=== PATIENT | female | born 1975 | race Caucasian/White ===

== ENCOUNTER 2017-11-13 08:50 | Outpatient (RCR) | payer OTHER, MEDICAID, SELFPAY ==
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
--- NOTE | 2017-11-13 14:48 | BH.MTP ---
Master Treatment Plan - Patient Information Program Physician:: Kat Colunga Primary Therapist:: Isi Black - Psychiatric Diagnoses Psychiatric Diagnoses:: Bipolar disorder F 31.9. PTSD. Anxiety unspecified. Borderline personality disorder. Excessive caffeine use. Nicotine use disorder. Remote history of alcohol use disorder. Remote history cocaine use Diagnosis Code(s):: F31.9 - Estimated LOS Estimated LOS (in weeks):: 6 Problem/Goal #1 - Problem/Goal #1 Stated Goal:: Client will increase mood stability and decrease depressive symptoms, anger/irritability, and suicidal ideation due to Bipolar I through Intensive Outpatient Program. Description of Barriers: Client has significant trauma history, limited support network, limited insight or ability to effectively regulate emotions, hx drug abuse, distorted thought patterns, and suicidal and self-harming thoughts are barriers to treatment. Functional Impact: Client?s emotion deregulation, impulsivity, and anxiety have contributed to increased difficulty at work as client reports frequent panic attacks, crying spells, and angry outbursts while on the job. Client reports her relationships with others is being impacted by symptoms as she is increasingly isolated, often verbally aggressive, and struggles to communicate needs with supports. Pt uses self-harming behaviors as a way to cope with her depression and anxiety, which led to increased problems. Client currently reports few supports and little control over dx panic attacks which has increased feelings of hopelessness and worthlessness. Client indicates intrusive trauma memories which have increased sx of depression. Goal Relevant Strengths/Supports: Client is resilient, outgoing, and motivated to improve mental health symptoms. She is currently receiving outpatient services and reports a strong desire to continue to increase her ability to recognize warning signs and triggers and manage mental health symptoms in healthy ways. Client's significant other is supportive to client getting help. - Objectives Objective #1 Stated Objective: Work with client to develop a ?crisis plan? which includes emergency telephone numbers, 3-4 coping strategies for SI, lists of supports, positive aspects of life, and motivations. Work with client to identify 3-4 sources or triggers to suicidal ideations and self-harming urges to increase insight. Identify 3 effective thought-stopping skills and healthy alternatives to self-harming to utilize. Interventions: Therapist will provide list of crisis phone numbers. Therapist will work with client to identify effective coping strategies, alternative behaviors, thought challenging strategies, and steps to take in time of mental health crisis. Discharge Criteria: Client will have achieved this goal once he completes his safety plan and is able to utilize coping and thought replacement strategies. Target Date: 12/25/17 Review Date: 12/04/17 Objective #2 Stated Objective: Client will reduce depression, angry outbursts, and impulsivity by identifying 2-3 triggers for mood changes and at least 3 ways to cope with these. Interventions: Therapist will help client develop insight into mental health triggers, provide psychoeducation regarding effective ways to communicate those triggers with support system, and aide client in identifying healthy coping strategies when identifying warning signs in order to prevent escalation of mood. Discharge Criteria: Client will have achieved this objective when able to verbalize at least 2 triggers that result in an elevated or depressed mood, indicates consistent application of healthy coping strategies, and is able to maintain mood stabalization for at least 2 weeks. Target Date: 12/25/17 Review Date: 11/06/17 Problem/Goal #2 - Problem/Goal #2 Description of Barriers: Client has significant trauma history, limited support network, limited insight or ability to effectively regulate emotions, hx drug abuse, distorted thought patterns, and suicidal and self-harming thoughts are barriers to treatment. Functional Impact: Client?s emotion deregulation, impulsivity, and anxiety have contributed to increased difficulty at work as client reports frequent panic attacks, crying spells, and angry outbursts while on the job. Client reports her relationships with others is being impacted by symptoms as she is increasingly isolated, often verbally aggressive, and struggles to communicate needs with supports. Pt uses self-harming behaviors as a way to cope with her depression and anxiety, which led to increased problems. Client currently reports few supports and little control over dx panic attacks which has increased feelings of hopelessness and worthlessness. Client indicates intrusive trauma memories which have increased sx of depression. Goal Relevant Strengths/Supports: Client is resilient, outgoing, and motivated to improve mental health symptoms. She is currently receiving outpatient services and reports a strong desire to continue to increase her ability to recognize warning signs and triggers and manage mental health symptoms in healthy ways. Client's significant other is supportive to client getting help. - Objectives Objective #1 Stated Objective: Client will identify 2-3 anxiety producing thoughts that tends to ruminate on, and reduce this by increasing self-awareness, use of calming strategies, and problem solving. Interventions: Therapist will help client identify internal struggles client faces, including anxiety around occupational pressure, use of anger as a means of coping, trauma triggers, and other identified stressors. Therapist will provide psychoeducation and work with client to identify healthy calming techniques and problem solving skills she may use in times of increased anxiety and stress. Discharge Criteria: Client will have achieved this objective when able to verbalize anxiety-producing thoughts and identify and implement 2-3 ways to cope with them. Target Date: 12/25/17 Review Date: 12/04/17
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
== END 2017-11-13 23:59 ==
LOC: BHIOP 08:50
PROVIDERS: Family Provider Nurse Practitioner; PCP Nurse Practitioner; Visit Provider Psychiatry & Neurology Psychiatry
DX: F31.9 Bipolar disorder, unspecified (principal); F43.10 Post-traumatic stress disorder, unspecified; F41.9 Anxiety disorder, unspecified; F60.3 Borderline personality disorder; F17.210 Nicotine dependence, cigarettes, uncomplicated; F10.20 Alcohol dependence, uncomplicated
CPT/HCPCS: H0035; 90853

== ENCOUNTER 2017-11-14 09:00 | Outpatient (RCR) | payer OTHER, MEDICAID, SELFPAY ==
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
--- NOTE | 2017-11-14 16:34 | BH.SGPN ---
Service Group Progress Note - Session Psychotherapy Session #2 Date Open:: 11/14/17 Time Started:: 10:21 Time Stopped:: 11:13 Targeted Problem #:: 1 Psychotherapy Session #3 Date Open:: 11/14/17 Time Started:: 11:24 Time Stopped:: 12:16
--- NOTE | 2017-11-15 10:59 | BH.COMM ---
Communication Note - Communication with Client Communication Note: Client contacted this therapist to inform that she would not be attending group on this date as she had been unable to get any sleep last night and needed to rest before work this evening. Client disclosed struggling with thoughts of hopelessness and worthlessness which lead to increased urges of self-harming this morning but denies current ideation or a plan or intent to act on these thoughts. She denies any suicidal ideation, plan, or intent and indicates feeling able to maintain safety at this time. Client denies access to lethal means and reports her boyfriend is supportive and currently in the residence. Client was willing create a safety plan for the remainder of the day as well as this weekend with this therapist. She was future oriented and discussed plans to take a hot shower and catch up on sleep before work in order to calm herself down, as well as plans to work all weekend. Client willing to call and follow-up with this therapist prior to going into work this afternoon.
--- NOTE | 2017-11-15 11:07 | BH.COMM_ITS ---
Communication Note - Communication with Client Communication Note: Client contacted this therapist to inform that she would not be attending group on this date as she had been unable to get any sleep last night and needed to rest before work this evening. Client disclosed struggling with thoughts of hopelessness and worthlessness which lead to increased urges of self-harming this morning but denies current ideation or a plan or intent to act on these thoughts. She denies any suicidal ideation, plan , or intent and indicates feeling able to maintain safety at this time. Client denies access to lethal means and reports her boyfriend is supportive and currently in the residence. Client was willing create a safety plan for the remainder of the day as well as this weekend with this therapist. She was future oriented and discussed plans to take a hot shower and catch up on sleep before work in order to calm herself down, as well as plans to work all weekend. Client willing to call and follow-up with this therapist prior to going into work this afternoon.
--- NOTE | 2017-11-15 11:09 | BH.SGPN ---
Service Group Progress Note - Session Psychotherapy Session #2 Date Open:: 11/14/17 Time Started:: 10:22 Time Stopped:: 11:13 Targeted Problem #:: 1 Type of Group:: Illness Management Goal of Group:: To increase understanding of resilience and identify the factors that contribute to building resilience.
--- NOTE | 2017-11-18 13:13 | BH.COMM ---
Communication Note - Communication with Client Communication Note: Client scheduled to attend the IOP program on this date however was not in attendance. Client indicated she had overslept and plans to attend group on the following day.
--- NOTE | 2017-11-20 10:58 | BH.MTP ---
[facility] Treatment Plan - Patient Information Program Physician:: Kat Colunga Primary Therapist:: Isi Black - Psychiatric Diagnoses Psychiatric Diagnoses:: Bipolar disorder F 31.9. PTSD. Anxiety unspecified. Borderline personality disorder. Excessive caffeine use. Nicotine use disorder. Remote history of alcohol use disorder. Remote history cocaine use Diagnosis Code(s):: F 31.9 - Estimated LOS Estimated LOS (in weeks):: 6 Problem/Goal #1 - Problem/Goal #1 Stated Goal:: Client will increase mood stability and decrease depressive symptoms, anger/irritability, and suicidal ideation due to Bipolar I through Intensive Outpatient Program. Description of Barriers: Client has significant trauma history, limited support network, limited insight or ability to effectively regulate emotions, hx drug abuse, distorted thought patterns, and suicidal and self-harming thoughts are barriers to treatment. Functional Impact: Clients emotion deregulation, impulsivity, and anxiety have contributed to increased difficulty at work as client reports frequent panic attacks, crying spells, and angry outbursts while on the job. Client reports her relationships with others is being impacted by symptoms as she is increasingly isolated, often verbally aggressive, and struggles to communicate needs with supports. Pt uses self-harming behaviors as a way to cope with her depression and anxiety, which led to increased problems. Client currently reports few supports and little control over dx panic attacks which has increased feelings of hopelessness and worthlessness. Client indicates intrusive trauma memories which have increased sx of depression. Goal Relevant Strengths/Supports: Client is resilient, outgoing, and motivated to improve mental health symptoms. She is currently receiving outpatient services and reports a strong desire to continue to increase her ability to recognize warning signs and triggers and manage mental health symptoms in healthy ways. Client's significant other is supportive to client getting help. - Objectives Objective #1 Stated Objective: Work with client to develop a crisis plan which includes emergency telephone numbers, 3-4 coping strategies for SI, lists of supports, positive aspects of life, and motivations. Work with client to identify 3-4 sources or triggers to suicidal ideations and self-harming urges to increase insight. Identify 3 effective thought-stopping skills and healthy alternatives to self-harming to utilize. Interventions: Therapist will provide list of crisis phone numbers. Therapist will work with client to identify effective coping strategies, alternative behaviors, thought challenging strategies, and steps to take in time of mental health crisis. Discharge Criteria: Client will have achieved this goal once he completes his safety plan and is able to utilize coping and thought replacement strategies. Target Date: 12/25/17 Review Date: 12/04/17 Objective #2 Stated Objective: Client will reduce depression, angry outbursts, and impulsivity by identifying 2-3 triggers for mood changes and at least 3 ways to cope with these. Interventions: Therapist will help client develop insight into mental health triggers, provide psychoeducation regarding effective ways to communicate those triggers with support system, and aide client in identifying healthy coping strategies when identifying warning signs in order to prevent escalation of mood. Discharge Criteria: Client will have achieved this objective when able to verbalize at least 2 triggers that result in an elevated or depressed mood, indicates consistent application of healthy coping strategies, and is able to maintain mood stabalization for at least 2 weeks. Target Date: 12/25/17 Review Date: 12/04/17 Problem/Goal #2 - Problem/Goal #2 Stated Goal:: Client will reduce overall frequency, intensity, and duration of the anxiety so that daily functioning is not impaired. Description of Barriers: Client has significant trauma history, limited support network, limited insight or ability to effectively regulate emotions, hx drug abuse, distorted thought patterns, and suicidal and self-harming thoughts are barriers to treatment. Functional Impact: Clients emotion deregulation, impulsivity, and anxiety have contributed to increased difficulty at work as client reports frequent panic attacks, crying spells, and angry outbursts while on the job. Client reports her relationships with others is being impacted by symptoms as she is increasingly isolated, often verbally aggressive, and struggles to communicate needs with supports. Pt uses self-harming behaviors as a way to cope with her depression and anxiety, which led to increased problems. Client currently reports few supports and little control over dx panic attacks which has increased feelings of hopelessness and worthlessness. Client indicates intrusive trauma memories which have increased sx of depression. Goal Relevant Strengths/Supports: Client is resilient, outgoing, and motivated to improve mental health symptoms. She is currently receiving outpatient services and reports a strong desire to continue to increase her ability to recognize warning signs and triggers and manage mental health symptoms in healthy ways. Client's significant other is supportive to client getting help. - Objectives Objective #1 Stated Objective: Client will identify 2-3 anxiety producing thoughts that tends to ruminate on, and reduce this by increasing self-awareness, use of calming strategies, and problem solving. Interventions: Therapist will help client identify internal struggles client faces, including anxiety around occupational pressure, use of anger as a means of coping, trauma triggers, and other identified stressors. Therapist will provide psychoeducation and work with client to identify healthy calming techniques and problem solving skills she may use in times of increased anxiety and stress. Discharge Criteria: Client will have achieved this objective when able to verbalize anxiety-producing thoughts and identify and implement 2-3 ways to cope with them. Target Date: 12/25/17 Review Date: 12/04/17
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
--- NOTE | 2017-11-20 14:45 | BH.COMM ---
Communication Note - Communication with Client Communication Note: Therapist attempted to contact Client outpatient individual therapist, Francisco J Alfaro, for coordination of care purposes. Unable to reach, will follow-up.
--- NOTE | 2017-11-20 14:47 | BH.COMM ---
Communication Note - Communication with Client Communication Note: Client followed-up to indicate safety. She shared speaking with her boyfirend about scheduling a family session to discuss ways to best support Client treatment progress. Client indicates feeling able to maintain safety and shared that she is currently waiting on her firend to come over to spend the evening with her. CLient reviewed safety plan for the night and expressed plans to attend group the next date.
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
--- NOTE | 2017-11-21 14:07 | BH.COMM ---
Communication Note - Communication with Client Communication Note: Client did not show for group session as scheduled. She was able to follow-up with this therapist and indicated sleeping through her alarm. Client expressed understanding the importance of consistent attendance in making progress with treatment and managing mental health symptoms. Client reports plans to attend group on following date and is aware of being scheduled for an appointment with program psychiatrist during that time as well.
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
--- NOTE | 2017-11-22 15:32 | BH.DR.ITP ---
Initial Treatment Plan - Patient Information Visit Information: ADMISSION DATE: EXPECTED LOS: 4-6 weeks Diagnoses:: Bipolar disorder of 31.9. PTSD. Borderline personality disorder - Problems/Symptoms Problem #1:: mood instability Symptom:: Depression, anhedonia, biologic disruption of sleep and appetite, chronic suicidal ideation, impulsivity, anger, mind racing Problem #2:: Anxiety Symptom:: Rumination, panic, intrusive traumatic thoughts, hypervigilance, obsessive-compulsive traits Problem #3:: Emotional dysregulation Symptom:: Self harm behaviors, cutting, tumultuous social relationships, negative self judging
--- NOTE | 2017-11-23 11:34 | BH.MDN_ITS ---
Multi-Disciplinary Note - Note 30-min Individual Time Started:: 11:30 Date: 11/22/17 Purpose of session/treatment goals addressed:: The purpose of this session was to follow-up with Client following increased Anxiety and irritability resulting in trip to local E.R. on previous night. Another purpose was to review with Client strategies for managing increased anxiety in the moment as well as develop a weekend safety plan. Eye Contact:: Good Motor Activity:: Appropriate Appearance:: Casual Speech:: Appropriate Mood:: Depressed Affect:: Labile Thoughts:: Linear, Logical, No evidence of hallucinations/delusions noted Staff Interventions:: Therapist used open ended questions to elicit information regarding Client current symptoms and recent stressor resulting in trip to E.R. on previous night. Provided a safe and supportive environment for client to vent frustrations and concerns. Used reflective listening and empathic responses to provide support. and normalize client current overwhelming emotions related to multiple stressors. HI techniques to aid Client in identifying healthy means for managing anxieties over the weekend in order to prevent crisis. Completed risk assessment. Client Response:: Client requested to meet with this therapist upon arrival to IOP program as she indicated having experienced increased panic and self- harming urges the previous night which resulted in Client going to the E.R.. Client explained that she had been struggling to manage intrusive thoughts and urges to self-harm all evening and her boyfriend had finally convinced her to seek help despite fears that she would be placed in an inpatient unit. Client indicates that she was not suicidal at the time. She discussed feeling as though everything seems to set her off and that she has recently experienced increased irritability as well, noting that she goes from zero to 100 instantly. Client went on to share that she had attempted to utilize healthy coping strategies such as playing with her dogs, music, and reframing thoughts to no avail. She discussed that at the time her boyfriend convincing her to go to the E.R. was then only thing that appeared to help. Client notes that following hospital trip she and her boyfriend was discussed him coming in for a family session. She identified wanting to discuss ways he may be of support to client so as to prevent crisis escalation. Client responded well to working with this therapist on developing an anxiety management plan for the weekend. She appeared to connect well with concepts of mindfulness and emotion release activities via mindful observation and coloring, as well as creating an exercise plan for times of increased energy or anger. Client indicates plans to sign up for a gym membership this weekend when she is not working. Client continues to struggle with utilizing internal coping mechanisms and will continue to work with this therapist on developing those skills. Risks/Concerns:: Client disclosed having gone to ER on previous night due to increased anxiety to the point of uncontrolled panic and fears that she would engage in self-harming behaviors. Client continues to struggle with regulating emotions and often quickly escalates to crisis state. She has a history of impulsive behavior leading up to and during crisis. Client denies current suicidal ideation or thoughts of self-harming and was willing to complete a crisis management plan for this weekend. Client indicates an ability to maintain safety and is aware of and willing to utilize local resources available if unable to maintain safety. Client future oriented as evidenced by plans to go to work after session and plans to attend psychiatry appointment on 11/27/17. Progress Toward Goals/Plan:: No progress, client continues to struggle with significant emotion disregulation and distorted thinking patterns. She is able to recognize appropriate coping skills such as positive self-talk, listening to music, and playing with her dogs; however, is unable to effectively apply these skills during crisis moments. Client additionally continues to struggle with resorting to maladaptive coping mechanisms such as self-harming behaviors i.e. cutting wrists or becoming verbally aggressive. She is receptive of beginning anger management work and seeking outpatient PTSD specific counseling in order to continue to work on identifying and managing anger triggers. Client recommended continuing IOP in order to prevent decomposition and continue to develop emotion regulation skills. Time Stopped:: 12:00
--- NOTE | 2017-11-27 15:47 | BH.COMM_ITS ---
Communication Note - Communication with Client Communication Note: This therapist was contacted by client outpatient therapist , Francisco J Alafro[facility] for coordination of care purposes and to discuss current goals for treatment. Additional updates on progress as well as any concerns will be communicated.
--- NOTE | 2017-11-27 15:57 | BH.MDN ---
Multi-Disciplinary Note - Note 45-min Individual Time Started:: 09:40 Date: 11/27/17 Purpose of session/treatment goals addressed:: The purpose of this session was to discuss with Client her concerns associated with regulating emotions, specifically anger, and identifying the impact this has had on Client mental health and treatment progress. Another goal was to work to identify potential warning signs and triggers for anger as well as effective self-regulation skills she may use during times of increased agitation. Other topics included: effective communication. Eye Contact:: Good Motor Activity:: Restless - AEB Client fidgeting with her sleeves and shaking her leg. Speech:: Appropriate Mood:: Euthymic Affect:: Full Thoughts:: Linear, Logical, No evidence of hallucinations/delusions noted Staff Interventions:: Therapist used open-ended and solution-focused questions to help client explore current contributing stressors and identify warning signs and triggers for anger and irritability. Therapist provided psychoeducation regarding the relationship between PTSD and emotion regulation as well as introduced and provided examples of various resiliency building strategies for Client to implement during times of increased stress or agitation. Therapist used strengths perspective to assist client in identifying positives and progress. Client Response:: Client responded well to session and was receptive to discussing the connection between PTSD and emotion regulation as well as strategies for managing stressors in the moment to prevent crisis escalation. Client shared that her entire weekend had been great as she and her significant other had gone out of town and been able to spend some quality time together. She discussed feeling as though her anxiety and depression were not on the forefront of her mind during that time which allowed her to enjoy herself. Client went on to indicate frustrations that the positive emotions felt over the weekend did not last, explaining that upon returning home her anger seemed to resurface. Client described having conflict with her partner at home as well as a co-worker while working on Saturday evening, which resulted in increased negative thinking and urges to self-harm. Client and therapist worked to identify potential triggers for her anger as well as warning signs to alert her to utilize healthy calming strategies. Client was very receptive of this as she discussed feeling as though she has little to no control over her words and/or actions when upset which has caused her to damage relationships in the past. Client shared struggling to know what to do to calm herself in to moment and indicated connecting with the heightened alert zone of regulation. Client was able to review several strategies for regulating herself during times of distress and expressed connecting most with a muscle tensing exercise as this would help release built up energy. She shared continued plans to obtain a gym membership as a means of emotional release. Client iterated that she is attending group to improve her mental health and really wants to begin taking things seriously. She expressed understanding of therapist reminding client that she will only get out of the program as much effort as she puts into it. Indicates plans to increase consistency of attendance. Risks/Concerns:: Client reports some decrease in self-harming thoughts and denies active plan or intent. Additionally denies suicidal ideation, plan, or intent as of 11/27/17. Client indicates having had a good weekend with her boyfriend but indicates everything went to shit last night noting urges to self-harm though was able to distract herself from these thoughts. Denies access to any lethal means. Client future oriented throughout session as shown by her report of going to work this afternoon and attending program the remainder of the day. Identified her dogs and doing this for me as motivations for living. Progress Toward Goals/Plan:: Client showing progress towards treatment goals as she reports implementing healthy coping skills and thought challenging strategies over the weekend and was able to successfully refrain from engaging in self-harming behaviors. She is additionally displaying progress in her ability to identify current behaviors negatively contributing to progress in treatment. Client continues to struggle with implementation of healthy alternative forms of coping as well as use of emotion regulation skills. She is inconsistent in attendance due to inconsistent work hours and difficulty in waking in the morning. CLient recommended ongoing IOP tx focused on emotion regulation, effective communication strategies, and utilization of healthy coping strategies. Time Stopped:: 10:28
--- NOTE | 2017-11-29 14:56 | BH.SGPN ---
Service Group Progress Note - Session Psychotherapy Session #2 Date Open:: 11/29/17 Time Started:: 10:15 Time Stopped:: 11:10 Targeted Problem #:: 1 Type of Group:: Illness Management Eye Contact:: Fair Motor Activity:: Appropriate Appearance:: Casual Speech:: Appropriate Mood:: Anxious, Depressed Affect:: Congruent Thoughts:: Linear, Logical, No evidence of hallucinations/delusions noted Psychotherapy Session #3 Date Open:: 11/29/17 Time Started:: 11:16 Time Stopped:: 12:06 Targeted Problem #:: 1 Type of Group:: Functional Skills Development Eye Contact:: Good Motor Activity:: Appropriate Appearance:: Casual Speech:: Appropriate Mood:: Anxious, Depressed Affect:: Congruent Thoughts:: Linear, Logical, No evidence of hallucinations/delusions noted
--- NOTE | 2017-11-29 16:07 | BH.SGPN ---
Service Group Progress Note - Session Psychotherapy Session #1 Date Open:: 11/29/17 Time Started:: 09:00 Time Stopped:: 10:00 Type of Group:: Process - 7 group members Goal of Group:: The goal of today's group was to check-in with client's mood, stressors, and positives, review homework and introduce topic for the day. Client Response/Progress/Benefit:: Pt was an active participant in group discussion. Shared with the group that her week has gone pretty well. Reports more stable mood AEB decreased anger outbursts, decreased crying spells, and increased motivation. Reports that her BF moved back into the house and improved relationship as the result of emotional regulation. She reports that she is medication compliant. Benefited from group support and feedback. Progress noted in mood stability and decrease in suicidal ideations. Continued treatment to maintain safety and stabilize mood. Eye Contact:: Fair Motor Activity:: Restless Appearance:: Disheveled Speech:: Rapid Mood:: Anxious Affect:: Congruent Thoughts:: Linear, Logical, No evidence of hallucinations/delusions noted Staff Interventions:: Therapist used open-ended questions to elicit information about client's current stressors and mood state. Therapist was supportive by using active listening and reflection.
--- NOTE | 2017-12-02 15:13 | BH.COMM ---
Communication Note - Communication with Client Communication Note: This therapist called client as she no called/no showed for scheduled IOP session today. Therapist woke client up with the call and client shared she will not be in today due to lack of sleep. Client to attend group tomorrow, 12/03/17.
--- NOTE | 2017-12-03 11:49 | BH.MDN ---
Multi-Disciplinary Note - Note 60-min Individual Time Started:: 10:24 Date: 12/03/17 Purpose of session/treatment goals addressed:: The purpose of this session was to work with CLient on processing and adressing concerns related to recently identified personal insecurities and use of negative or self-depricating talk. Another purpose was to introduce the concept of Cognitive Distortions and work with CLient on increasing her ability to identify and dispute irrational or maladaptive thoughts. Other topics covered included: Attendance policy, identifying triggers. Eye Contact:: Good Motor Activity:: Appropriate Appearance:: Casual Speech:: Appropriate Mood:: Euthymic Affect:: Full Thoughts:: Linear, Logical, No evidence of hallucinations/delusions noted Staff Interventions:: Therapist used active listening and asked open-ended questions to gather additional information regarding Client negative thinking patterns and core beliefs. Therapist used CBT to increase client awareness of how thoughts impact emotions and behaviors. Provided psychoeducation regarding various types of Cognitive Distortions and helped client identify her most common negative thoughts. Therapist reviewed with Client strategies for learning to dispute irrational or maladaptive thoughts and provided Client with a Thought Log worksheet to begin tacking and challenging negative thinking patterns. Reviewed program attendance policy and discussed strategies to improve CLient attendance. Client Response:: Client responded well to session and was actively engaged throughout. Client left group to meet with this therapist as she reported I just thought of this article I read last night and really wanted to ask you about it. She went on to discuss an article published by [employer] reviewing how early environment can impact later behaviors and internal messages. Client indicated connecting with what the article had described regarding the impact of past trauma on later insecurity and described various instances in which she finds this to be impacting her life and current relationships. Client further indicated the article had said to replace the negative self-talk with other messages and inquired as to whether this is something that might be good for her to try. Client was receptive to learning more about concepts of CBT and benefited from using her dogs as an analogy for explaining learned behaviors, indicating I guess I learned to 'bite' when people make me feel threatened. Client able to understand the various cognitive distortions discussed and connect each with specific thoughts in her own life. Client identified I always do that with Anne....he says 'You only hear what you want to hear and don't listen to nothing else. She connected this with distortions of mental filter, disqualifying the positive, and catastrophizing. Client shared motivation to continue to learn ways to manage symptoms and change her current maladaptive coping behaviors. She explained I've been practicing filtering and discussed taking a second to allow herself to calm down at work before responding to her boss. Client reviewed various thought replacing techniques with therapist via examples of specific cognitive distortions and indicates plans to begin completing a daily thought log to improve her ability to challenge distorted thinking. Client reports feeling guilty about missing group on the previous date and was receptive of discussing attendance policy. She indicates understanding consistent attendance is important to making consistent progress in tx. Risks/Concerns:: Client denies suicidal ideation, plan, and intent as of 12/03/17. Client reports she has not experienced urges to self harm in the past 2-3 days and indicates decreased sx of anxiety which often lead to crisis. She is future oriented AEB Client discussing plans to go to work following group as well as wanting to spend time cleaning up her house this week. She identifies her dogs and desire to feel more confident in herself as major motivations to continue to make progress in implementing change behaviors. Progress Toward Goals/Plan:: Client demonstrating progress with increasing levels of motivation to apply treatment concepts to daily life as well as increased levels of self-awareness related to the impact past and present behaviors and thinking patterns have had on her life. Client reports noticing a decrease in levels of anxiety and depression and indicates fewer crying spells at work. Client denies any urges to self-harm in the past week and shared I'm really trying to work on changing me. Client continues to struggle with emotion regulation and reports ongoing difficulties in becoming defensive or becoming verbally aggressive when feeling hurt or threatened. Client has however made progress in her ability to take a step back and calm herself down before reacting. Client continues to struggle with regular attendance which impedes ability to make consistent progress in tx. Client to continue IOP to promote mood stability and develop healthy coping skills. Time Stopped:: 11:26
--- NOTE | 2017-12-03 12:16 | BH.TPR ---
Treatment Plan Review Date of Admission:: 11/13/17 Date of Treatment Plan Review:: 12/03/17
--- NOTE | 2017-12-03 14:50 | BH.SGPN_ITS ---
Service Group Progress Note - Session Psychotherapy Session #1 Date Open:: 12/03/17 Time Started:: 09:05 Time Stopped:: 10:00 Type of Group:: Process - 8 group members Goal of Group:: The goal of today's group was to check-in with client's mood, stressors, and positives, review homework and introduce topic for the day. Client Response/Progress/Benefit:: Pt was an active participant in group discussion. Shared with the group that her weekend went well. Reports that she was able to spend time with friends and her mood has been stable. She reports that she is also happy that she was able to get job change at her work which she requested. Provided appropriate feedback to peers. Progress noted as reported by pt. Continued treatment to prevent further decompensation, stablize mood, and maintain safety. Eye Contact:: Intense Motor Activity:: Restless Appearance:: Disheveled Speech:: Appropriate Mood:: Irritable Affect:: Congruent Thoughts:: Linear, Logical, Flight of ideas, No evidence of hallucinations/ delusions noted Staff Interventions:: Therapist used open-ended questions to elicit information about client's current stressors and mood state. Therapist was supportive by using active listening and reflection.
--- NOTE | 2017-12-03 16:17 | BH.SGPN ---
Service Group Progress Note - Session Psychotherapy Session #3 Date Open:: 12/03/17 Time Started:: 11:18 Time Stopped:: 12:15 Targeted Problem #:: 1 Type of Group:: Functional Skills Development Goal of Group:: To identify what contributes positively and negatively to conflict and appropriate ways to manage conflict with others. Client Response/Progress/Benefit:: Pt engaged in challenge activity as evidenced by pt verbalizing her thoughts as well as listening to others as well. Pt able to identify communicating and being willing to give something up as strategies that helped the group be successful to resolve conflict during group activity. Pt reported she will use today's topic in everyday life by remember to listen before speaking, being willing to give and take, and being willing to put someone elses needs before her own. Client seemed to benefit from group identifying several strategies to help resolve conflict. Eye Contact:: Good Motor Activity:: Appropriate Appearance:: Casual Speech:: Appropriate Mood:: Dysthymic Affect:: Constricted Thoughts:: Linear, Logical, No evidence of hallucinations/delusions noted Staff Interventions:: Therapist facilitated group activity in which group members were provided with materials and had to eliminate certain items with consensus from group. Therapist processed activity, helping clients connect throughout activity strategies each person used to manage conflict. Therapist led discussion about what contributes to conflict in a positive or negative manner. Therapist facilitated discussion about conflict resolution strategies and provided group member with a handout about effective ways to manage conflict.
--- NOTE | 2017-12-05 15:46 | BH.SGPN ---
Service Group Progress Note - Session Psychotherapy Session #1 Date Open:: 12/05/17 Time Started:: 09:10 Time Stopped:: 10:00 Type of Group:: Process - 6 group members Goal of Group:: The goal of today's group was to check-in with client's mood, stressors, and positives, review homework and introduce topic for the day. Behaviors/Verbalizations/Mental Status:: Pt was an active participant in group discussion. Tearful while she was checking in. Reports that she had a bad day yesterday which involved self-injurious behaviors and negative thoughts. Ultimately this lead to isolation, increased anger, and argument with BF. She discussed a series of inappropriate coping skills and negative thinking. She admited that she did not use any of the skills that she learned in group and reverted back to inappropriate ways to manage her symptoms. She is tearful and regrets her actions. Group was supportive. Pt talked about what she would have done differently to manage the situation. Progress noted in awareness. While she did not use the skills she did identify her role in her emotions. Continued treatment to maintain safety, stablize mood, and improve functioning. Eye Contact:: Fair Motor Activity:: Restless Appearance:: Disheveled Speech:: Rapid Mood:: Anxious, Irritable, Depressed Affect:: Labile, Congruent Thoughts:: Linear, Logical, No evidence of hallucinations/delusions noted Staff Interventions:: Therapist used open-ended questions to elicit information about client's current stressors and mood state. Therapist was supportive by using active listening and reflection.
--- NOTE | 2017-12-05 16:30 | BH.SGPN ---
Service Group Progress Note - Session Psychotherapy Session #2 Date Open:: 12/05/17 Time Started:: 10:13 Time Stopped:: 11:13 Targeted Problem #:: 1 Type of Group:: Illness Management - 7 participants Goal of Group:: To increase understanding of a crisis and improve client?s awareness of personal warning signs before crisis. Eye Contact:: Good Motor Activity:: Appropriate Appearance:: Casual Speech:: Appropriate Mood:: Euthymic Affect:: Full Thoughts:: Linear, Logical, No evidence of hallucinations/delusions noted Staff Interventions:: Therapist facilitated group discussion about defining a crisis and specifying various events that are considered a crisis. Therapist led group in an activity in which group members had to identify their thoughts and emotions attached to being in a crisis. Therapist provided support by using active listening and providing feedback. Psychotherapy Session #3 Date Open:: 12/05/17 Time Started:: 11:22 Time Stopped:: 12:24 Targeted Problem #:: 1 Type of Group:: Functional Skills Development - 7 participants Goal of Group:: To increase awareness of warning signs before a crisis and identify interventions/coping strategies that would help clients proactively manage potential crises. Eye Contact:: Good Motor Activity:: Appropriate Appearance:: Casual Speech:: Appropriate Mood:: Euthymic Affect:: Full Thoughts:: Linear, Logical, No evidence of hallucinations/delusions noted Staff Interventions:: Therapist led the group in discussion about identifying personal warning signs before a crisis and importance of being aware of those signs. Therapist provided the group with various types of items and asked each group member to select five items that represent something that would be helpful in managing their warning signs of a crisis. Therapist facilitated group processing of the crisis emergency kits each group member created. Therapist used open-ended questions to encourage elaboration of each item chosen for their kit. Therapist helped clients connect how the crisis emergency kit could help be a crisis prevention tool.
--- NOTE | 2017-12-06 10:58 | BH.COMM ---
Communication Note - Communication with Client Communication Note: Client called to indicate that she is waiting to be seen by urgent care as she has not been feeling well and may have an ear infection. CLient discussed not knowing how long the appointment will take and is unsure if she will be able finished with her appointment in time for group. CLient indicates planning to attend group again on Saturday if unable to attend on this date.
--- NOTE | 2017-12-09 10:55 | BH.COMM ---
Communication Note - Communication with Client Communication Note: Client called to cancel attendance scheduled for today's group. CLient indicates she is still recovering from a double ear infection and slept through her alarm due to such. Client shared plans to attend scheduled day on Saturday and expressed understanding that the program requires atleast 2 days of group attendance per week.
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
--- NOTE | 2017-12-11 16:25 | BH.SGPN ---
Service Group Progress Note - Session Psychotherapy Session #2 Date Open:: 12/11/17 Time Started:: 10:20 Time Stopped:: 11:15 Targeted Problem #:: 1 Type of Group:: Illness Management - 7 group members Goal of Group:: To increase understanding of cognitive distortions, identify examples of when have had unhelpful thinking, and increase awareness of the impact cognitive distortions have on mental health. Eye Contact:: Fair Motor Activity:: Appropriate Appearance:: Casual Speech:: Other - loud,intense Mood:: Anxious, Irritable, Depressed Affect:: Congruent Thoughts:: Linear, No evidence of hallucinations/delusions noted Staff Interventions:: Therapist provided group members with a handout that listed ten cognitive distortions with examples. Therapist facilitated group discussion about cognitive distortions. Therapist led group members in an activity to help them understand the impact cognitive distortions can have on emotions and behavior. Therapist provided support by using active listening and providing feedback. Psychotherapy Session #3 Date Open:: 12/11/17 Time Started:: 11:30 Time Stopped:: 12:20 Targeted Problem #:: 1 Type of Group:: Functional Skills Development - 7 group members Goal of Group:: To identify ways of defeating cognitive distortions and rehearse defeating the identified cognitive distortion. Eye Contact:: Fair Motor Activity:: Appropriate Appearance:: Casual Speech:: Other - loud Mood:: Anxious, Irritable, Depressed Affect:: Congruent Thoughts:: Linear, No evidence of hallucinations/delusions noted Staff Interventions:: Therapist utilized an activity as a tool in helping clients connect the amount of effort one will need to put forth to defeat cognitive distortions. Therapist provided group members with a handout to use as an aid when trying to defeat their unhelpful thinking. Therapist processed the worksheet with group members, helping them reframe the cognitive distortions.
--- NOTE | 2017-12-11 16:28 | BH.SGPN_ITS ---
Service Group Progress Note - Session Psychotherapy Session #2 Date Open:: 12/11/17 Time Started:: 10:20 Time Stopped:: 11:15 Targeted Problem #:: 1 Type of Group:: Illness Management - 7 group members Goal of Group:: To increase understanding of cognitive distortions, identify examples of when have had unhelpful thinking, and increase awareness of the impact cognitive distortions have on mental health. Eye Contact:: Fair Motor Activity:: Appropriate Appearance:: Casual Speech:: Other - loud,intense Mood:: Anxious, Irritable, Depressed Affect:: Congruent Thoughts:: Linear, No evidence of hallucinations/delusions noted Staff Interventions:: Therapist provided group members with a handout that listed ten cognitive distortions with examples. Therapist facilitated group di scussion about cognitive distortions. Therapist led group members in an activity to help them understand the impact cognitive distortions can have on emotions and behavior. Therapist provided support by using active listening and providing feedback. Psychotherapy Session #3 Date Open:: 12/11/17 Time Started:: 11:30 Time Stopped:: 12:20 Targeted Problem #:: 1 Type of Group:: Functional Skills Development - 7 group members Goal of Group:: To identify ways of defeating cognitive distortions and rehearse defeating the identified cognitive distortion. Eye Contact:: Fair Motor Activity:: Appropriate Appearance:: Casual Speech:: Other - loud Mood:: Anxious, Irritable, Depressed Affect:: Congruent Thoughts:: Linear, No evidence of hallucinations/delusions noted Staff Interventions:: Therapist utilized an activity as a tool in helping client s connect the amount of effort one will need to put forth to defeat cognitive distortions. Therapist provided group members with a handout to use as an aid when trying to defeat their unhelpful thinking. Therapist processed the worksheet with group members, helping them reframe the cognitive distortions.
--- NOTE | 2017-12-13 14:18 | BH.COMM ---
Communication Note - Communication with Client Communication Note: Client was scheduled for IOP group and individual session on this date however was unable to attend due to lack of transportation. Client request rescheduling for Saturday 12/16.
== END 2017-12-14 23:59 ==
LOC: BHIOP 09:00
PROVIDERS: Family Provider Nurse Practitioner; PCP Nurse Practitioner; Visit Provider Psychiatry & Neurology Psychiatry
DX: F31.9 Bipolar disorder, unspecified (principal); F43.10 Post-traumatic stress disorder, unspecified; F41.9 Anxiety disorder, unspecified; F60.3 Borderline personality disorder; F17.210 Nicotine dependence, cigarettes, uncomplicated; F10.20 Alcohol dependence, uncomplicated; F14.20 Cocaine dependence, uncomplicated
CPT/HCPCS: H0035; 90832; 90834; 90837; 90853

== ENCOUNTER 2017-11-22 01:11 | Emergency (ER) | payer OTHER, MEDICAID, SELFPAY ==
[2017-11-22 01:12] VITALS: BP 147/102; PULSE 97; RESP 25; TEMP 36.5; O2SAT 97; BMI 37.3
--- NOTE | 2017-11-22 01:36 | ED.DCSUM_ITS ---
- ER Visit Summary Date of Service: 11/22/17 Chief Complaint: Depression History of Present Illness: The patient is a 42 F here with significant other for increasing depression this evening. Patient on and off symptoms for the past month. Was started on Wellbutrin at that time on top of her Effexor. She does follow counselor, was placed in intensive outpatient therapy a week ago going Saturday through Saturday. She has an appointment tomorrow at 8 AM. Significant other with her, states he just moved out of the house after living with her since May. Patient denies any suicidal or homicidal ideations. No auditory or visual hallucinations. Denies any alcohol or illicit drug use. Admits to tobacco use. Significant other brought her here to see if we could help her symptoms. Patient did not want to come. Physical Examination: General: Alert and oriented ?3, tearful holding her significant other HEENT: Normocephalic, atraumatic. Moist mucosa membranes Neck: supple, nontender. Cardiovascular: Regular rate and rhythm, no murmurs Respiratory: Normal breath sounds, symmetric, no distress Abdomen: Soft, nontender, nondistended Extremities: Nontender, no edema, pulses intact ?4 Neuro: no focal neurological deficits. Psych: Cooperative, no suicidal or homicidal ideations. Test Results: [] Emergency Department Course and Treatment: Patient tearful, after discussion, discussed symptoms likely due to relationship with other moving out. He understands. She is not suicidal homicidal. Discussed with significant other if he can stay with her this evening with her follow-up appointment at 8 AM tomorrow with her counselor. He states he can do this. Patient agrees with plan. She was given 1 dose of hydroxyzine to help with symptoms, however states she would likely feel better when he stays with her this evening. He will go with her to the counselor discussed the relationship and the recent events causing her symptoms. She return if any worsening symptoms. All questions were answered. Treatment Plan: [] Disposition: Discharge Impression: 1. Depression 2. Acute stress event This note was generated with [email or web address] software. It may contain incorrect words, spelling, and punctuation that were not noted in review of the chart prior to signing ED Disposition - Plan for ED Patient: Disposition: Home or Assisted Living Chief Complaint: Depression Diagnosis: Anxiety and depression Instructions: ED Depression Referrals: Claudette Marin [Primary Care Provider] - Additional Instructions: Go to counselor as scheduled tomorrow at 8am.
== END 2017-11-22 02:06 | disposition home or self-care (01) ==
LOC: ED 01:51
PROVIDERS: Emergency Provider Emergency Medicine; Family Provider Nurse Practitioner; PCP Nurse Practitioner
DX: F32.9 Major depressive disorder, single episode, unspecified (principal); F43.9 Reaction to severe stress, unspecified; Z72.0 Tobacco use; I12.9 Hypertensive chronic kidney disease with stage 1 through stage 4 chronic kidney disease, or unspecified chronic kidney disease; N18.9 Chronic kidney disease, unspecified
CPT/HCPCS: 99283

== ENCOUNTER 2017-12-17 09:00 | Outpatient (RCR) | payer OTHER, MEDICAID, SELFPAY ==
--- NOTE | 2017-12-16 14:16 | BH.COMM ---
Communication Note - Communication with Client Communication Note: Client scheduled for IOP group and individual session on this date however did not show for appointment. CLient was unable to be reached when this therapist attempted to follow-up and a message was left encouraging CLient to callback to reschedule. Additional follow-up will be made.
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
--- NOTE | 2017-12-17 15:18 | BH.SGPN ---
Service Group Progress Note - Session Psychotherapy Session #2 Date Open:: 12/17/17 Time Started:: 10:20 Time Stopped:: 11:20 Targeted Problem #:: 1 Type of Group:: Illness Management - 7 group members Goal of Group:: To increase understanding and awareness of emotions connected to change and the impact those emotions can have on change. Client Response/Progress/Benefit:: Pt contributed to discussion and listened attentively to others. Client related to several of the things that hold people back from making change. Client shared laziness and lack of motivation to be things that keep her from following through with change. Client shared she learned that it's important to let go of unhealthy coping, that there is never a good time to change, and it is okay to make mistakes. client seemed to benefit from learning about the change process. Eye Contact:: Fair Motor Activity:: Appropriate Appearance:: Casual Speech:: Appropriate Mood:: Dysthymic Affect:: Congruent Thoughts:: Linear, Logical, No evidence of hallucinations/delusions noted Staff Interventions:: Therapist facilitated group discussion about change. Therapist led the group in an activity in which the activity was utilized as a tool to increase clients awareness of emotions connected with change. Therapist led the processing of how each emotion was connected with change. Therapist provided psychoeducation process of change, helped group members apply it to their life. Therapist was supportive by providing feedback and using reflective listening. Psychotherapy Session #3 Date Open:: 12/17/17 Time Started:: 11:30 Time Stopped:: 12:20 Targeted Problem #:: 1 Type of Group:: Functional Skills Development - 6 group members Goal of Group:: To identify the challenges associated with making change and identify positive outcomes that have resulted from changes made in past. Client Response/Progress/Benefit:: Client worked cooperatively with others and listened to peers. During activity client communicated with peers and worked together to accomplish goal. Client shared she plan's to use today's topic in her daily life by working on managing her emotions in the moment. Client reported her small change she is willing to make is getting up on time so she can make it to IOP. Eye Contact:: Fair Motor Activity:: Appropriate Appearance:: Casual Speech:: Appropriate Mood:: Dysthymic Affect:: Congruent Thoughts:: Linear, Logical, No evidence of hallucinations/delusions noted Staff Interventions:: Therapist facilitated the group discussion about importance of setting and maintaining boundaries. Therapist led the group in role playing in which they would have the opportunity to practice setting boundaries. Therapist provided feedback to group members.
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
--- NOTE | 2017-12-19 14:30 | BH.SGPN ---
Service Group Progress Note - Session Psychotherapy Session #2 Date Open:: 18 - 7 group members Time Started:: 10:10 Time Stopped:: 11:03 Targeted Problem #:: 1 Type of Group:: Illness Management Goal of Group:: To increase understanding of pitfalls and impact can have on mental health. Client Response/Progress/Benefit:: Client responded well to session, active participant. Client appeared to connect with the quote sharing there is nothing good down the easy path, the right path may be a new you. Client discussed pitfalls and how they impact mental health. Client shared pitfalls can increase self-doubt, depression, and lead to self-harm. After processing the activity client shared having awareness of her pitfalls is important, so client can avoid them. Client appeared to benefit from increasing awareness of how pitfalls impact mental health. Progress noted in client's increased insight to warning signs, but can continue to benefit from emotional regulation. Eye Contact:: Good Motor Activity:: Restless Appearance:: Casual Speech:: Rambling, Rapid Mood:: Irritable Affect:: Full Thoughts:: Linear, Logical, No evidence of hallucinations/delusions noted Staff Interventions:: Therapist facilitated discussion about pitfalls and assisted group in identifying common pitfalls that can set you back. Therapist led group in an activity to help group understand impact pitfalls can have on oneself and identify strategies that could help you get back on the right path. Therapist provided support by using active listening and providing feedback.
--- NOTE | 2017-12-19 14:53 | BH.MDN_ITS ---
Multi-Disciplinary Note - Note 60-min Individual Time Started:: 11:09 Date: 12/19/17 Purpose of session/treatment goals addressed:: The purpose of this session was to work with Client on addressing and processing ongoing difficulties with implementing healthy emotion regulation and crisis management skills, as well as assist CLient in identifying potential triggers and thoughts, behaviors, and means of coping that may be negatively contributing to emotion regulation. Another purpose was to work with CLient on creating a crisis management plan including healthy alternatives to self harm, positive self-talk statements, and reminders of why not to resort back to past unhealthy means of coping. Eye Contact:: Good Motor Activity:: Appropriate Appearance:: Casual Speech:: Appropriate Mood:: Euthymic Affect:: Full Thoughts:: Linear, Logical, No evidence of hallucinations/delusions noted Staff Interventions:: Therapist used active listening and open-ended questions to explore client's current thoughts and stressors leading to recent influx in emotion dysregulation resulting in self-harming behaviors. Therapist provided Client with a safe space to process frustrations regarding ongoing difficulties in preventing crisis escalation and aided client in identifying patterns of behavior, thoughts, or triggers maintaining crisis cycle. Therapist validated Client emotions and provided psychoeducation regarding alternatives to self- harming as well as strategies for regulating mood. Therapist used motivational interviewing to aide Client in developing a plan for managing emotions and challenging negative thinking patterns during times of increased distress and/or anxiety. Time Stopped:: 11:57
--- NOTE | 2017-12-20 14:48 | PCM.PN.BLA ---
Progress Note Patient is seen in follow-up for bipolar disorder of 31.9, PTSD, anxiety unspecified, borderline personality disorder. History is been obtained per interview with patient, discussion with staff, review of chart. Case discussed with treatment team. Chief complaint-mood symptoms and anxiety okay today. I had an episode. Interim history Patient reports that she continues to have some mixed mood symptoms. She feels somewhat over activated with irritability and increased energy but feels it is less intense. Her depressive symptoms are somewhat improved. She had an episode of self-harm and cutting on Saturday associated with traumatic flashbacks. She has superficial cuts to her left arm. Tetanus immunization is up-to-date. Denies current suicidal or homicidal ideations. Reports I admitted I love myself and I do not want to . Moderate ruminative anxiety regarding health emergency last night of boyfriend's family member. Sleeping generally from 2 AM until between 8 and 10 AM. Sleeps from 4 AM to 1 PM on workdays. Appetite fair. Denies nausea vomiting or diarrhea. Continues to consume 2 monster caffeinated beverages daily. Compliant with medication including Depakote 500 mg nightly. Discontinued Wellbutrin. Continued Effexor 300 mg daily. Denies adverse effects to medications. Mental status exam Alert and oriented . No acute distress. Ambulatory with normal gait and station. Appears stated age. Casually dressed and groomed. Appropriate hygiene. Cooperative with interview. Good eye contact. No psychomotor agitation or retardation. Mood mildly dysphoric. Affect congruent. Speech is clear and with regular rate and rhythm. Language fluent. Thought process organized. Associations logical. Thought content significant for ruminative anxiety and themes of depression. No suicidal or homicidal ideation related or detected.. No symptoms consistent with psychosis noted or detected. Immediate recent and remote memory grossly intact. Attention and concentration are fair. Estimated intelligence and fund of knowledge average. Judgment and insight fair. Diagnosis Bipolar disorder of 31.9 PTSD Anxiety unspecified Borderline personality disorder Excessive caffeine use Nicotine use disorder Remote history of alcohol use disorder Remote history cocaine use Plan Continue IOP as the structured setting is necessary to maintain gains and prevent decompensation. Risks benefits alternatives of medications discussed with patient. Patient acknowledges understanding. Decrease Effexor XR to 225 mg p.o. daily. Risk of discontinuation syndrome discussed with patient. Prescription provided for Effexor XR 37.9 mg daily to use as needed if discontinuation symptoms are severe. Continue BuSpar 30 mg 3 times daily. Continue gabapentin. Increase Depakote. Depakote ER 1000 mg p.o. nightly. Requisition provided for lab work. Lab work not yet obtained from last week. Encouraged follow-up with outpatient psychiatric providers. Encouraged decreased caffeine consumption. Encouraged alcohol and drug abstinence. 25 minutes of DBT oriented psychotherapy provided. Discussed safety and reduction of self-harm. Patient acknowledges understanding and is in agreement with plan. She feels able to maintain safety. She agrees to seek help or emergency care if feeling unsafe to self or others.
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
--- NOTE | 2017-12-23 13:18 | BH.SGPN ---
Service Group Progress Note - Session Psychotherapy Session #2 Date Open:: 12/23/17 Time Started:: 10:23 Time Stopped:: 11:17 Targeted Problem #:: 1 Type of Group:: Illness Management - 6 participants Goal of Group:: To increase understanding of the various life chapters people can go through and the impacts various internal and external factors may have on what chapter someone may currently be on. Another goal was to increase self-awareness of view of their past, present, and future. Client Response/Progress/Benefit:: Client was a semi-active participant and varied in attentiveness as Client struggle with remaining awake during the discussion. She provided intermittent input throughout due to struggles with alertness; however, did well to remain on topic when contributing. Client worked with the group to discuss the power we ultimately have over the path we end up choosing in life and identified various forces that maybe currently preventing her from moving forward. She shared that other people's expectations and toxic relationships have been contributing factors preventing CLient from avoiding changing the behaviors negatively impacting her mental health. She benefited from connecting the discussion to her own struggles with consistent emotion regulation. CLient showed progress in her ability to identify potential contributing factors and would benefit from continued work on analyzing and addressing identified barriers. Eye Contact:: Poor - client falling asleep with head down on various occassions throughout discussion. Motor Activity:: Slowed - due to client fatigue Appearance:: Casual Speech:: Appropriate Mood:: Euthymic Affect:: Congruent Thoughts:: Linear, Logical, No evidence of hallucinations/delusions noted Staff Interventions:: Therapist provided each group member with a handout labeled Chapters of My Life and facilitated group discussion about each of the five chapters from the handout. Therapist led an activity to help clients gain self-awareness of how perspective impacts the chapter we may be on. Therapist provided support by using reflective listening and providing feedback. Psychotherapy Session #3 Date Open:: 12/23/17 Time Started:: 11:25 Time Stopped:: 12:15 Targeted Problem #:: 1 Type of Group:: Functional Skills Development - 6 participants Goal of Group:: To provide education regarding the 7 steps to effective decision making and assist client in identifying the personal steps needed to act on the decision to move past current chapter of life. Another goal was to identify what strategies and supports may help them move to the next chapter in life. Client Response/Progress/Benefit:: Client again responded well to session and was able to maintain more consistent engagement than in prior session. CLient more consistently provided input to the group and openly worked with fellow participants on analyzing the decision making process. CLient benefited from reviewing the various steps involved and identified her tendancy to skip steps jumping straight to taking action. She displayed progress in her ability to identify potential consequences of acting on impulse and skipping weighing pro's/con's stating that this has led her to fall in a whole new hole. Client identified setting healthy boundaries as a decision she needs to make to move towards her next chapter. CLient reccommended continued focus on identifying and implementing healthy boundary setting. Eye Contact:: Fair - Eye contact more consistent than prior group however continued to struggle with putting head down during discussion. Motor Activity:: Appropriate Appearance:: Casual Speech:: Appropriate Mood:: Euthymic Affect:: Congruent Thoughts:: Linear, Logical, No evidence of hallucinations/delusions noted Staff Interventions:: Therapist processed which chapter each group member identified for the past, present and future. Provided education regarding the 7 steps to effective decision making and assisted clients in applying this concept to personal life. Therapist used open ended questions to elicit elaboration. Therapist led discussion about what has helped each person move to the current life chapter. Therapist assisted clients with identifying what are barriers to moving forward. Therapist provided support by using active listening and providing feedback.
--- NOTE | 2017-12-23 14:05 | BH.SGPN_ITS ---
Service Group Progress Note - Session Psychotherapy Session #2 Date Open:: 12/23/17 Time Started:: 10:23 Time Stopped:: 11:17 Targeted Problem #:: 1 Type of Group:: Illness Management - 6 participants Goal of Group:: To increase understanding of the various life chapter?s people can go through and the impacts various internal and external factors may have on what chapter someone may currently be on. Another goal was to increase self- awareness of view of their past, present, and future. Client Response/Progress/Benefit:: Client was a semi-active participant and varied in attentiveness as Client struggle with remaining awake during the discussion. She provided intermittent input throughout due to struggles with alertness; however, did well to remain on topic when contributing. Client worked with the group to discuss the power we ultimately have over the path we end up choosing in life and identified various forces that maybe currently preventing her from moving forward. She shared that other people's expectations and toxic relationships have been contributing factors preventing CLient from avoiding changing the behaviors negatively impacting her mental health. She benefited from connecting the discussion to her own struggles with consistent emotion regulation. CLient showed progress in her ability to identify potential contributing factors and would benefit from continued work on analyzing and addressing identified barriers. Eye Contact:: Poor - client falling asleep with head down on various occassions throughout discussion. Motor Activity:: Slowed - due to client fatigue Appearance:: Casual Speech:: Appropriate Mood:: Euthymic Affect:: Congruent Thoughts:: Linear, Logical, No evidence of hallucinations/delusions noted Staff Interventions:: Therapist provided each group member with a handout labeled ?Chapters of My Life? and facilitated group discussion about each of the five chapters from the handout. Therapist led an activity to help client?s gain self-awareness of how perspective impacts the chapter we may be on. Therapist provided support by using reflective listening and providing feedback. Psychotherapy Session #3 Date Open:: 12/23/17 Time Started:: 11:25 Time Stopped:: 12:15 Targeted Problem #:: 1 Type of Group:: Functional Skills Development - 6 participants Goal of Group:: To provide education regarding the 7 steps to effective decision making and assist client in identifying the personal steps needed to act on the decision to move past current chapter of life. Another goal was to identify what strategies and supports may help them move to the next chapter in life. Client Response/Progress/Benefit:: Client again responded well to session and was able to maintain more consistent engagement than in prior session. CLient more consistently provided input to the group and openly worked with fellow participants on analyzing the decision making process. CLient benefited from reviewing the various steps involved and identified her tendancy to skip steps jumping straight to taking action. She displayed progress in her ability to identify potential consequences of acting on impulse and skipping weighing pro' s/con's stating that this has led her to fall in a whole new hole. Client identified setting healthy boundaries as a decision she needs to make to move towards her next chapter. CLient reccommended continued focus on identifying and implementing healthy boundary setting. Eye Contact:: Fair - Eye contact more consistent than prior group however continued to struggle with putting head down during discussion. Motor Activity:: Appropriate Appearance:: Casual Speech:: Appropriate Mood:: Euthymic Affect:: Congruent Thoughts:: Linear, Logical, No evidence of hallucinations/delusions noted Staff Interventions:: Therapist processed which chapter each group member identified for the past, present and future. Provided education regarding the 7 steps to effective decision making and assisted clients in applying this concept to personal life. Therapist used open ended questions to elicit elaboration. Therapist led discussion about what has helped each person move to the current life chapter. Therapist assisted clients with identifying what are barriers to moving forward. Therapist provided support by using active listening and providing feedback.
--- NOTE | 2017-12-24 14:08 | BH.SGPN_ITS ---
Service Group Progress Note - Session Psychotherapy Session #2 Date Open:: 12/24/17 - 7 group members Time Started:: 10:17 Time Stopped:: 11:12 Targeted Problem #:: 1 Type of Group:: Illness Management Goal of Group:: To identify within self what is keeping client trapped from achieving better quality of life. Client Response/Progress/Benefit:: Client responded well to session, active in discussion, but oversharing at times. Client appeared to connect with the quote stating, this is me, I do this. Client agreed with peers that there are external circumstances that impact mental health, but the way one natasha also increases the iraheta that confine a person. Client identified negative thinking , toxic people, and self-harm as things keeping client stuck. Client reported her top five negative thoughts that keep client in a negative maintenance cycle such as I'm a burden, I'm not good enough, I can't change, I'm better off , I'm weak. Client appeared to benefit from increasing awareness of the negative thoughts keeping client stuck. Progress noted in client's ability to recognize irrational thoughts, can continue to benefit from utilizing impulse control coping skills. Eye Contact:: Fair Appearance:: Casual Speech:: Rapid Mood:: Irritable Affect:: Full Thoughts:: Linear, No evidence of hallucinations/delusions noted Staff Interventions:: Therapist facilitated discussion about what is keeping client?s stuck from moving toward mental wellness. Therapist assisted clients in connecting how thoughts can contribute to keeping clients stuck. Therapist led discussion about barriers clients face from making changes to help one move forward. Therapist provided support by using active listening and giving feedback to others.
--- NOTE | 2017-12-24 14:51 | BH.MDN ---
Multi-Disciplinary Note - Note 30-min Individual Time Started:: 11:47 Date: 12/24/17 Purpose of session/treatment goals addressed:: The purpose of this session was to continue to work with Client on utilizing healthy emotion regulation skills during times of distress as well as reinforce the importance of trying various calming strategies prior to contacting Crisis. Another purpose was to review with Client components of a healthy relationship and ways to effectively communicate needs and concerns. Eye Contact:: Fair Motor Activity:: Appropriate Appearance:: Casual, Other - client had bags under eyes which were red, skin appeared red due to lack of sleep. Speech:: Appropriate Mood:: Dysthymic Affect:: Full Thoughts:: Linear, Logical, No evidence of hallucinations/delusions noted Staff Interventions:: Therapist used open ended questions to elicit information regarding Client current symptoms, stressors, and progress in utilizing coping skills. Used reflective listening and empathic responses to provide support and encouragement as client discussed current concerns/frustrations. Reviewed Client identified healthy skills and discussed importance of practicing skills when not in crisis in order to establish a foundation, as well as assisted client in developing a [id number] de-escalation plan. Provided psychoeducation regarding healthy relationships and effective communication strategies. Client Response:: Client willing to meet with this therapist and responded well to discussion reviewing progress with implementing crisis management plan. Client discussed a conversation she had with her significant other the previous night that had resulted in client becoming emotionally dysregulated. Client indicated that although she had been tempted to skip work or self-harm at the time, she had been able to successfully complete her entire shift as well as avoid engaging in self-injurious behaviors. Client reflected that this had been very difficult but that she reminded herself to take it a few minutes at a time. Client went on to discuss still feeling upset when she left work so she spent much of the night cleaning. She took accountability for her tendency to jump to catastrophizing when hearing something upsetting or in times of distress and was agreeable to developing a [id number] crisis prevention plan to help mitigate risk or self harming or further escalation. Client identified conversations with her significant other as a common factor in what is occurring prior to times of increased distress. She was receptive of discussing dimensions of a healthy relationship and how to effectively communicate needs and concerns with supports. CLient indicated willingness to engage in a conversation with her significant other reviewing what may help in supporting her as well as discussing expectations and establishing a plan for managing conflict in order to further prevent crisis escalation. CLient will follow-up. Risks/Concerns:: Client denies SI and self-harming urges as of 12/24/17. She reports last self-harming on 12/18/17 and last urge occurring last night, 12/23/17; [id number], client was able to successfully from acting on the impulse. Client continues to report that learning to love herself is her greatest motivation to continue to live and identifies her dogs and significant other as largest supports. Client future oriented as she reports plans to discuss healthy communication strategies with her partner this evening as well as attend IOP group on , 12/26. She is aware of crisis resources available and willing to follow established safety plan should need to. Progress Toward Goals/Plan:: Little progress. CLient has displayed progress in her ability to refrain from engaging in self-harming behaviors during times of increased distress. She reports that healthy distraction and affirmational statements/reframing has been most beneficial in successfully doing so. Client continues to struggle with consistently using healthy alternatives to cutting for emotional release and reports last engaging in self-harm on 12/18/17. Client has significant difficulty in managing her emotions during times of increased stress and often times escalates to the point of crisis. She is able to identify that this is impacted by inconsistent application of healthy coping mechansims as well as poor boundaries and eneffective communication with supports. CLient continues to express a strong desire to learn strategies for improving emotion regulation and is displaying increased motivation to actively try to incorporate treatment concepts in daily life. Recommended continued IOP treatment to further focus on improving crisis management and communication skills, increase consistent stabalization, and use of healthy coping strategies. Time Stopped:: 12:16
--- NOTE | 2017-12-26 14:33 | BH.COMM_ITS ---
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 Did not provide explaination as to nature of cancelation however indicates plans to reschedule for the following date.
--- NOTE | 2017-12-30 15:00 | BH.COMM ---
Communication Note - Communication with Client Communication Note: Client scheduled for individual and group on this date however did not show. She later called in to inform this therapist that she had overslept. CLient rescheduled for following date and therapist will follow-up.
--- NOTE | 2017-12-31 15:03 | BH.COMM ---
Communication Note - Communication with Client Communication Note: Client scheduled for individual session and group on this date. She called to cancel scheduled sessions and indicated that she is ill. Client expressed plans to attend group on following date.
--- NOTE | 2018-01-01 10:51 | BH.COMM ---
Communication Note - Communication with Client Communication Note: Client left a voicemail indicating she overslept this morning. CLient expressed plans to attend group following date. Therapist will follow-up upon CLient next appointment to address issues with attendance and work to develop possible solutions.
--- NOTE | 2018-01-02 10:24 | BH.SGPN_ITS ---
Service Group Progress Note - Session Psychotherapy Session #1 Date Open:: 01/02/18 - 7 group members Time Started:: 09:05 Time Stopped:: 10:05 Targeted Problem #:: 1 Type of Group:: Process Goal of Group:: The goal of today's group was to check-in with client's mood, stressors, and positives, and introduce topic for the day. Client Response/Progress/Benefit:: Client responded well to session, full affect and joking with peers. Client reports feeling exhausted but awesome today as client has successfully made it a week without engaging in self- harming behaviors. Client shared she is very proud of herself for not cutting and for reminding myself that I may not like something but I have to deal with it. Client stated she has been busy with work, but reports no anxiety. Client reported focusing on what thoughts, emotions, and behaviors she gives value to has been helpful in her progress. Client appeared to benefit from reflecting on progress and identifying ways to maintain her progress. Client to continue IOP to promote gains and maintenance of healthy coping skills. Eye Contact:: Good Motor Activity:: Restless Appearance:: Casual Speech:: Appropriate Mood:: Euthymic Affect:: Congruent Thoughts:: Linear, No evidence of hallucinations/delusions noted Staff Interventions:: Therapist used open-ended questions to elicit information about client's current stressors and mood state. Therapist was supportive by using active listening and reflection.
--- NOTE | 2018-01-02 15:00 | BH.SGPN ---
Service Group Progress Note - Session Psychotherapy Session #2 Date Open:: 01/02/18 Time Started:: 10:18 Time Stopped:: 11:15 Targeted Problem #:: 1 Type of Group:: Illness Management Goal of Group:: The goal of group was to increase understanding of goals and goal setting and practice a method of goal setting. Client Response/Progress/Benefit:: Pt contributed to discussion and listened attentively to others. Pt agreed with peers that goals are important because gives direction and a purpose. Pt reported she has a difficult time following through with goals because sometimes the goals are unrealistic. Pt reported she learned from group session how to set attainable goals, importance of celebrating when accomplish goal, and impact negative talk can have on being successful with reaching goals. Pt seemed to benefit from learning about setting SMART goals and practicing setting short term goals. Eye Contact:: Good Motor Activity:: Restless Appearance:: Casual Speech:: Appropriate Mood:: Euthymic Affect:: Congruent Thoughts:: Linear, Logical, No evidence of hallucinations/delusions noted Staff Interventions:: Therapist facilitated group discussion about goals and goal setting. Therapist taught group the acronym SMART (Specific, Measurable, Achievable, Realistic, Timely) as a tool to help with goal setting. Therapist led the group in an activity to be used as a method of practicing goal setting. Therapist guided the group through the SMART acronym as group was participating in activity. Therapist assisted group members with connecting the importance of making small, realistic goals.
--- NOTE | 2018-01-07 08:56 | BH.DS ---
Discharge Summary - Demographics Date of Admission:: 11/13/17 Discharge Date: 01/06/18 Presenting Problems at Admission:: At time of admission client endorsed predominantly depressive symptoms and overwhelming anxiety. Client reported chronic passive suicidal ideation with vague plan, and no intent. She described frequently engaging in self-injurious behavior via superficial lacerations on the wrist as a means of coping with overwhelming stress and anxiety. Client indicated symptoms of anhedonia, restlessness, racing and thoughts, decreased appetite, poor sleep, difficulty concentrating, and intermittent suicidal thoughts. Client also endorsed panic attacks every day associated with PTSD and various psychosocial stressors. Client presented to [facility] following a referral from outpatient provider at the [facility]. At admission client reports major stressors include lack of finances, overwhelming workplace responsibilities, and relationship issues. Discharge Diagnoses:: Bipolar disorder F 31.9. PTSD. Anxiety unspecified. Borderline personality disorder. Excessive caffeine use. Nicotine use disorder. Remote history of alcohol use disorder. Remote history cocaine use Reason for Discharge:: Client discharged from [facility] due to increased schedule conflicts and inconsistent attendance. Client additionally has displayed consistent levels of stability and reports decreased symptoms of anxiety and depression; therefore, CLient no longer meets [facility] level of care criteria. Client is currently established at the [facility] for outpatient therapy and psychiatry services. - Treatment Progress During Treatment & Response: Client responded well to treatment when present; however, was inconsistent in application of skills discussed outside of treatment environment. Client reported feeling as though she received positive support and encouragement from staff and fellow participants. She reports a decrease in overall symptoms of depression and anxiety, as well as successfully refrained from engaging in self-harming behaviors for the past three weeks. Client continues to struggle with intrapersonal issues and workplace stress due to ongoing difficulties in implementing emotion regulation skills during times on anger or frustration. Client progress in this area has been limited due to inconsistent attendance and often failed to call and cancel when missing appointments. While in the program, Client varied in levels of engagement during group. Client reported misuse of medication and struggled at times following through with utilizing the distress management plan created in session, resulting in crisis escalation. Client shared she benefited from gaining insight into diagnosis and healthy stress management and communication skills. Client demonstrated progress with refraining from engaging in self-harming behaviors, improved ability to challenge and reframe negative or distorted thoughts, increasing self-care, and identifying healthy versus unhealthy coping skills. 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 However, Client genuinely expressed a desire to improve mental health symptoms and was receptive and engaged during individual sessions. Issues Still to be Addressed:: Client can continue to benefit from consistent use of crisis and distress management plan in order to maintain emotion regulation and prevent re-engagement in self-harming behaviors. Client would benefit from continued work in increasing awareness of warning signs and triggers for depression, anger, and anxiety. Client often expressed frustration with managing conflict within intrapersonal relationships and struggled to apply effective communication strategies to manage the conflict. Client often becomes increasingly dysregulated and resorts to unhealthy means of coping such as verbal outburst, throwing things, or self-harming. She could continue to benefit from utilizing impulse control, calming, and thought challenging strategies. Client has a history of unhealthy relationships, trauma, and substance use and could benefit post discharge from setting boundaries and seeking positive supports. Discharge Recommendations/Instructions:: Client recommended to [facility] with [facility] Client also recommended to follow up with Gisell Lindo at [facility] for psychiatric services. Additionally, client encouraged to continue to use the Crisis Hotline as needed and follow her Crisis and Emotion Regulation Safety Plan as well as openly and consistently communicate with supports. Discharge Handout: Complete Discharge Handout with client on aftercare options and continuity of care.
--- NOTE | 2018-01-07 16:04 | BH.DS_ITS ---
Discharge Summary - Demographics Date of Admission:: 11/13/17 Discharge Date: 01/06/18 Presenting Problems at Admission:: At time of admission client endorsed predominantly depressive symptoms and overwhelming anxiety. Client reported chronic passive suicidal ideation with vague plan, and no intent. She described frequently engaging in self-injurious behavior via superficial lacerations on the wrist as a means of coping with overwhelming stress and anxiety. Client indicated symptoms of anhedonia, restlessness, racing and thoughts, decreased appetite, poor sleep, difficulty concentrating, and intermittent suicidal thoughts. Client also endorsed panic attacks every day associated with PTSD and various psychosocial stressors. Client presented to [facility] following a referral from outpatient provider at the [facility]. At admission client reports major stressors include lack of finances, overwhelming workplace responsibilities, and relationship issues. Discharge Diagnoses:: Bipolar disorder F 31.9. PTSD. Anxiety unspecified. Borderline personality disorder. Excessive caffeine use. Nicotine use disorder. Remote history of alcohol use disorder. Remote history cocaine use Reason for Discharge:: Client discharged from [facility] due to increased schedule conflicts and inconsistent attendance. Client additionally has displayed consistent levels of stability and reports decreased symptoms of anxiety and depression; therefore, CLient no longer meets [facility] level of care criteria. Client is currently established at the [facility] for outpatient therapy and psychiatry services. - Treatment Progress During Treatment & Response: Client responded well to treatment when present; however, was inconsistent in application of skills discussed outside of treatment environment. Client reported feeling as though she received positive support and encouragement from staff and fellow participants. She reports a decrease in overall symptoms of depression and anxiety, as well as successfully refrained from engaging in self-harming behaviors for the past three weeks. Client continues to struggle with intrapersonal issues and workplace stress due to ongoing difficulties in implementing emotion regulation skills during times on anger or frustration. Client progress in this area has been limited due to inconsistent attendance and often failed to call and cancel when missing appointments. While in the program, Client varied in levels of engagement during group. Client reported misuse of medication and struggled at times following through with utilizing the distress management plan created in session, resulting in crisis escalation. Client shared she benefited from gaining insight into diagnosis and healthy stress management and communication skills. Client demonstrated progress with refraining from engaging in self- harming behaviors, improved ability to challenge and reframe negative or distorted thoughts, increasing self-care, and identifying healthy versus unhealthy coping skills. Client had multiple scheduling conflicts as she works third shift which could have impacted client?s attendance and progress. However , Client genuinely expressed a desire to improve mental health symptoms and was receptive and engaged during individual sessions. Issues Still to be Addressed:: Client can continue to benefit from consistent use of crisis and distress management plan in order to maintain emotion regulation and prevent re-engagement in self-harming behaviors. Client would benefit from continued work in increasing awareness of warning signs and triggers for depression, anger, and anxiety. Client often expressed frustration with managing conflict within intrapersonal relationships and struggled to apply effective communication strategies to manage the conflict. Client often becomes increasingly dysregulated and resorts to unhealthy means of coping such as verbal outburst, throwing things, or self-harming. She could continue to benefit from utilizing impulse control, calming, and thought challenging strategies. Client has a history of unhealthy relationships, trauma, and substance use and could benefit post discharge from setting boundaries and seeking positive supports. Discharge Recommendations/Instructions:: Client recommended to follow up with her [facility] Client also recommended to follow up with Gisell Lindo at [facility] for psychiatric services. Additionally, client encouraged to continue to use the Crisis Hotline as needed and follow her Crisis and Emotion Regulation Safety Plan as well as openly and consistently communicate with supports. Discharge Handout: Complete Discharge Handout with client on aftercare options and continuity of care.
== END 2018-01-06 14:00 | disposition home or self-care (01) ==
LOC: BHIOP 09:00
PROVIDERS: Family Provider Nurse Practitioner; PCP Nurse Practitioner; Visit Provider Psychiatry & Neurology Psychiatry
DX: F31.9 Bipolar disorder, unspecified (principal); F43.10 Post-traumatic stress disorder, unspecified; F41.9 Anxiety disorder, unspecified; F60.3 Borderline personality disorder; F15.99 Other stimulant use, unspecified with unspecified stimulant-induced disorder; F17.210 Nicotine dependence, cigarettes, uncomplicated; F10.20 Alcohol dependence, uncomplicated; F11.20 Opioid dependence, uncomplicated; Z79.899 Other long term (current) drug therapy
CPT/HCPCS: H0035; 90832; 90834; 90837; 90853

== ENCOUNTER 2018-01-16 03:28 | Emergency (ER) | payer OTHER, SELFPAY ==
[2018-01-16 03:29] VITALS: BP 126/81; PULSE 70; RESP 16; TEMP 37.2; O2SAT 98; BMI 32.2
--- NOTE | 2018-01-16 03:32 | EKG12_ITS ---
Test Reason : [facility] Blood Pressure : / mmHG Vent. Rate : 086 BPM Atrial Rate : 086 BPM P-R Int : 142 ms QRS Dur : 082 ms QT Int : 338 ms P-R-T Axes : 019 054 017 degrees QTc Int : 404 ms Normal sinus rhythm Normal ECG Confirmed by RUCHI OROSCO MD ([id number]), order editor HENRY JAMISON ([id number] on 01/20/2018 1:46:45 PM Referred By: KRISHAN Confirmed By:RUCHI OROSCO MD
--- NOTE | 2018-01-16 03:33 | ED.VISSUMM ---
- ER Visit Summary Date of Service: 01/16/18 Chief Complaint: Suicide attempt History of Present Illness: The patient is a 43 F history of bipolar disorder who presents via law enforcement and EMS for suicide attempt. Per law enforcement on scene, the patient threatened to slit her wrists, and family states she had a knife and nail clippers to her wrist threatening to harm herself. Patient also states she took 28 muscle relaxers to try and kill herself, and then stated she spit them out. Unclear if any or how many were actually ingested. Patient has prior history of self-harm and suicide gestures. Patient states she did put a whole bottle of Zanaflex in her mouth but her friend convinced her to spit them out. She denies any sleepiness, dizziness or any other symptoms and states that one Zanaflex will knock her out and thus she does not think she swallowed any of the medication. She was trying to kill herself when she did it. She states that she was threatening to cut herself with a brown tonight. She states she did not do any self-harm tonight but rather her most recent wrist injury was from yesterday. Patient is also complaining of right ankle pain. She states that she rolled her ankle and sprained it 1 week ago, and then injured it again yesterday. She chronically injures this ankle, and states that she has been having to stand and walk on it at work, and has been wearing an ankle brace to help with the pain but it has not been sufficient. She is able to weight-bear but has been hobbling on the leg. Physical Examination: Vital signs: afebrile, hemodynamically stable, no hypoxia on room air General: well nourished, well developed, in no distress Skin: warm, dry, no rash, no pallor HEENT: normocephalic and atraumatic; PERRL, EOMI, moist mucous membranes Cardiovascular: regular rate and rhythm, no peripheral edema, 2+ pulses all distal extremities Respiratory: No increased work of breathing MSK: Moves all extremities, normal strength, horizontal superficial lacerations to the left volar forearm in various stages of healing, with most distal 1 having dried blood on it, distal neurovascular function intact. Right ankle has tenderness to light palpation along the posterior lateral malleolus and the distal fibula. No deformity. Pain with motion of the ankle. DP pulses 2+. Sensation and motor function intact although pain with range of motion of the ankle Neuro: Awake and alert, oriented ?4. No facial droop, sensation and motor function intact and symmetric Test Results: Abnormal Lab Results 01/16/18 01/16/18 01/16/18 03:40 03:40 03:40 WBC 16.1 H RBC 4.66 Hgb 14.6 Hct 44.2 MCV 94.8 MCH 31.3 MCHC 33.0 RDW 13.4 RDW Differential 46.2 H Plt Count 250 MPV 9.5 Immature Gran % (Auto) 0.600 Neut % (Auto) 70.2 H Lymph % (Auto) 19.4 Redwood % (Auto) 7.7 Eos % (Auto) 1.9 Baso % (Auto) 0.2 Absolute Neuts (auto) 11.3 H Absolute Lymphs (auto) 3.11 Total Counted Not Reportable Sodium 142 Potassium 4.2 Chloride 108 H Carbon Dioxide 25.0 Anion Gap 9 BUN 18 Creatinine 1.24 H Estim Creat Clear Calc 41.15 Est GFR (MDRD) Af Amer 60 Est GFR (MDRD) Non-Af 50 L BUN/Creatinine Ratio 14.5 Glucose 98 Calcium 8.4 L Total Bilirubin < 0.10 L AST 12 L ALT 27 Alkaline Phosphatase 61 Total Protein 7.4 Albumin 3.4 Globulin 4.0 Albumin/Globulin Ratio 0.8 L Serum , Qual Salicylates 2.1 L Urine Opiates Screen Urine Methadone Screen Acetaminophen < 10.0 L Ur Barbiturates Screen Ur Phencyclidine Scrn Ur Amphetamines Screen U Methamphetamin-MDMA U Benzodiazepines Scrn Urine Cocaine Screen U Cannabinoids Screen Ur Drug Screen Comment Ethyl Alcohol < 3.0 01/16/18 01/16/18 03:40 03:42 WBC RBC Hgb Hct MCV MCH MCHC RDW RDW Differential Plt Count MPV Immature Gran % (Auto) Neut % (Auto) Lymph % (Auto) Redwood % (Auto) Eos % (Auto) Baso % (Auto) Absolute Neuts (auto) Absolute Lymphs (auto) Total Counted Sodium Potassium Chloride Carbon Dioxide Anion Gap BUN Creatinine Estim Creat Clear Calc Est GFR (MDRD) Af Amer Est GFR (MDRD) Non-Af BUN/Creatinine Ratio Glucose Calcium Total Bilirubin AST ALT Alkaline Phosphatase Total Protein Albumin Globulin Albumin/Globulin Ratio Serum , Qual NEGATIVE Salicylates Urine Opiates Screen NEGATIVE Urine Methadone Screen NEGATIVE Acetaminophen Ur Barbiturates Screen NEGATIVE Ur Phencyclidine Scrn NEGATIVE Ur Amphetamines Screen NEGATIVE U Methamphetamin-MDMA NEGATIVE U Benzodiazepines Scrn NEGATIVE Urine Cocaine Screen NEGATIVE U Cannabinoids Screen NEGATIVE Ur Drug Screen Comment Ethyl Alcohol Emergency Department Course and Treatment: Medical screening was performed, showing negative tox, negative alcohol, negative salicylate and acetaminophen levels, negative , and no significant lab derangements other than leukocytosis of 16.1. Patient has no signs of infection. Tetanus was updated. X-ray was performed of the right ankle, showing concern for disruption of the interosseous ligament for the distal fibula and tibia. It was placed in a walking boot, but was unable to be given crutches due to her likely admission to a mental health facility and crutches not being an acceptable item to bring into a facility. Patient was encouraged to stay off of the ankle as much as possible, however this ankle injury occurred 1 week ago patient has all ready been weightbearing. She is to follow-up with orthopedics as soon as possible due to the possibility that this ankle sprain may require surgery. Patient was medically cleared for evaluation by crisis intervention counselor. After interviewing the patient, it was determined she would benefit from inpatient admission for further psychiatric evaluation. Patient became very upset when told she would be admitted, and she requested to speak to me. She was very tearful and upset, and at this time had her walking boot off and was tearing pieces of the padding off of it. Because patient was not wearing it appropriately and because she was becoming more upset and difficult to reason with, the boot was taken away from her while she was in bed in case she decided to throw it or use it as a weapon. Final disposition pending placement. Treatment Plan: [] Disposition: [] Impression: Suicidal ideation This note was generated with [employer] dictation software. It may contain incorrect words, spelling, and punctuation that were not noted in review of the chart prior to signing ED Disposition - Plan for ED Patient: Chief Complaint: Suicidal Referrals: Claudette Marin [Primary Care Provider] -
[2018-01-16 03:48] LABS: Absolute Lymphocyte Count 3.11 X10^3/ul (0.83-4.51); Absolute Neutrophil Count 11.3 X10^3/uL (2.0-7.7); Basophil# 0.03 X10^3/uL; Basophil% 0.2 % (0-1); Eosinophil# 0.31 X10^3/uL; Eosinophils% 1.9 % (0-5); Hematocrit 44.2 % (37-47); Hemoglobin 14.6 g/dl (12.0-15.0); Lymphocyte # 3.11 X10^3/ul (4.0); Lymphocyte % 19.4 % (19-41); Mean Corpuscular Hgb 31.3 pg (27.0-32.0); Mean Corpuscular Volume 94.8 fL (81-99); Mean Platelet Vol. 9.5 fl (6.2-12.0); Monocyte# 1.24 X10^3/uL; Monocyte% 7.7 % (0-10); Neutrophil # 11.28 X10^3/uL (2.7-7.7); Neutrophil % 70.2 % (47-70); Platelet Count 250 K/mm3 (150-450); RBC Distribution Width CV 13.4 % (11.6-14.6); RBC Distribution Width SD 46.2 fl (35.1-43.9); Red Blood Count 4.66 M/mm3 (4.2-5.4); White Blood Count 16.1 K/mm3 (4.4-11.0)
[2018-01-16 03:51] LABS: POSITIVE COUNT NO; POSITIVE DIFFERENTIAL NO; POSITIVE MORPHOLOGY NO
[2018-01-16 04:17] LABS: Amphetamine Urine VISTA NEGATIVE (<1000 ng/mL); Barbiturate Urine VISTA NEGATIVE (< 200 ng/mL); Benzodiazepine Urine VISTA NEGATIVE (< 200 ng/mL); Cocaine Urine VISTA NEGATIVE (< 300 ng/mL); Ecstacy Urine VISTA NEGATIVE (< 500 ng/mL); Methadone Urine VISTA NEGATIVE (< 300 ng/mL); PCP Urine VISTA NEGATIVE (< 25 ng/mL); THC Urine VISTA NEGATIVE (< 50 ng/mL); Vista UDS pH Range 6
--- NOTE | 2018-01-16 04:22 | RAD_ITS ---
STUDY: X-RAY - RIGHT ANKLE REASON FOR EXAM: Female, 43 years old. Twisted ankle one week ago. Lateral pain. TECHNIQUE: 3 view(s) of the ankle. COMPARISON: None. FINDINGS: Normal visualized distal tibia and fibula. Normal medial and lateral malleoli. There is mild widening of the distal tibial-fibular articulation, suggesting sprain of the interosseous ligament. There is associated minimal widening of the ankle mortise, probably about 2 mm. Normal tibiotalar articulation.. There is a plantar calcaneal spur. Otherwise normal visualized talus and calcaneus. The visualized subtalar, talonavicular, calcaneocuboid and tarsal articulations are normal. The soft tissue structures are unremarkable. RAD/Ankle min 3 Views IMPRESSION: Sprain of the distal tibial-fibular interosseous ligament, with associated minimal widening of ankle mortise. No demonstrated fracture or dislocation. Electronically Signed: Osvaldo Paulino MD at 4:47 EDT , Service support ,
[2018-01-16 04:30] LABS: ALB/GLOB Ratio 0.8 RATIO (0.9-2.4); AST(SGOT) 12 U/L (15-37); Alanine Aminotransfer ALT/SGPT 27 U/L (13-56); Albumin, Serum 3.4 g/dL (3.2-5.0); Alkaline Phosphatase 61 U/L (45-117); Anion Gap 9 (5-15); BUN 18 mg/dL (7-18); BUN/Creat Ratio 14.5 RATIO (10-20); Calcium,Total 8.4 mg/dL (8.5-10.1); Chloride 108 mmol/L (98-107); Creatinine, Serum 1.24 mg/dL (0.55-1.02); EST Glomerular Filtration Rate 50 mL/min (>60); Est Glom Filt Rate - Afr Amer 60 mL/min (>60); Estimated Creatinine Clearance 41.15 ml/min; Glucose 98 mg/dL (74-106); Potassium 4.2 mmol/L (3.5-5.1); Protein, Total 7.4 g/dL (6.4-8.2); Sodium Level 142 mmol/L (136-145); Total Bilirubin < 0.10 mg/dL (0.20-1.00)
[2018-01-16 04:31] LABS: Pregnancy, Serum, hCG Quali. NEGATIVE Negative (0-9 Nonpreg)
[2018-01-16 04:40] VITALS: RESP 16
[2018-01-16 05:02] VITALS: RESP 16
[2018-01-16 05:02] LABS: Acetaminophen (Tylenol) Level < 10.0 ug/mL (10.0-30.0); Alcohol, Blood (Medical)-Serum < 3.0 mg/dL; Salicylate 2.1 mg/dL (2.8-20.0)
--- NOTE | 2018-01-16 05:05 | ED.RN ---
CALLED [facility] TO HAVE THEM COME SEE PATIENT. DRYWALL APPLICATION SUPERVISOR STATED THAT SHE WOULD GET MEENA.
[2018-01-16] MEDS: Diphth,Pertuss(Acell),Tet Vac 0.5 ML Vial IM (05:20)
--- NOTE | 2018-01-16 05:54 | ED.RN ---
[facility] DEPARTMENT HERE TO SEE PATIENT AT THIS TIME
--- NOTE | 2018-01-16 06:06 | ED.RN ---
COUNSELOR IN THE DEPARTMENT.
[2018-01-16 06:07] VITALS: RESP 18
--- NOTE | 2018-01-16 06:56 | ED.RN ---
PT SPOKE TO THE COUNSELOR AND WAS VERY UPSET THAT SHE WAS GOING TO PLACED IN A MENTAL HEALTH FACILITY.PT SPOKE TO THE MD AND IS TRYING TO NEGOTIATE WITH HER.PT STARTED CRYING WHEN SHE FOUND OUT THAT SHE CAN NOT GO HOME.
--- NOTE | 2018-01-16 08:18 | ED.RN ---
PER PREETI WITH CRISIS WAITING TO HEAR FROM [facility]
--- NOTE | 2018-01-16 09:09 | ED.RN ---
REPORT CALLED TO [facility] TO [facility] AND WAITING FOR OK TO SET UP TRANSFER AFTER ACCEPTING
[2018-01-16 09:30] VITALS: BP 110/88; PULSE 88; RESP 18; TEMP 36.6; O2SAT 96
[2018-01-16 09:40] VITALS: BP 110/80; PULSE 88; RESP 18; TEMP 36.6; O2SAT 96
--- NOTE | 2018-01-16 09:41 | NURSING ---
PT WORRIED OVER NOT TAKING MY HEART AND BP MEDS YET TODAY. DR. MORAN WITH [facility] OK TO DISPENSE AM HOME MEDS FROM PT PILL BOTTLES PRESCRIBED. PT CRYING OFF AND ON. STATED, 'WHAT A GREAT FING BIRTHDAY. I GET TO SPEND IT ALONE VS STABLE AND MEDS GIVEN PER THIS RN WITH BAG RETURNED TO [facility]. [facility]
== END 2018-01-16 10:14 ==
PROVIDERS: Emergency Provider Emergency Medicine; Family Provider Nurse Practitioner; PCP Nurse Practitioner
DX: R45.851 Suicidal ideations (principal); F32.9 Major depressive disorder, single episode, unspecified; Z91.5 Personal history of self-harm; Z72.0 Tobacco use; Z23 Encounter for immunization
CPT/HCPCS: 36415; 73610; 80053; 80307; 80320; 80329; 84703; 85025; 90715; 93005; 99285; G0480

== ENCOUNTER 2018-03-27 14:45 | Emergency (ER) | payer OTHER, MEDICAID, SELFPAY ==
--- NOTE | 2018-03-27 14:45 | RAD_ITS ---
STUDY: X-RAY CHEST REASON FOR EXAM: Female, 43 years old. One-week history of cough and shortness of breath. TECHNIQUE: PA and lateral views of the chest. COMPARISON: Comparison is made with prior study dated December 12, 2015. FINDINGS: The lungs are clear and expanded. There is no demonstrated pleural abnormality. Normal size heart. Normal mediastinum and marcelo. Normal visualized pulmonary arteries. Normal visualized aortic arch and descending thoracic aorta. Normal visualized thoracic spine. Normal visualized ribs, clavicles, and shoulders. There is no demonstrated abnormality of the visualized soft tissue structures of the upper abdomen. RAD/Chest PA and Lateral IMPRESSION: Normal x-ray examination of the chest. Electronically Signed: Js White MD at 15:13 EDT Tel [phone], Service support ,
[2018-03-27 14:46] VITALS: BP 137/88; PULSE 81; RESP 22; TEMP 36.4; O2SAT 98; BMI 35.2
[2018-03-27 16:27] VITALS: O2SAT 100
--- NOTE | 2018-03-27 17:10 | ED.VISSUMM ---
- ER Visit Summary Date of Service: 03/27/18 Chief Complaint: Cough History of Present Illness: The patient is a 43 F presenting for evaluation secondary to cough. Patient reports over the course last week she has had a cough that is productive of brown sputum chest tightness and some sore throat. Patient reports that she is getting subjective fevers and chills with this. She denies any nausea vomiting or diarrhea. She states she does have some chest tightness associated with this. Patient reports that she is a pack-a-day smoker. She denies any prior history of lung disease. Review of systems otherwise negative. Physical Examination: Vital signs are within normal limits, patient is afebrile. General: Patient is well-nourished well-developed and in no acute distress. Head: Normocephalic, atraumatic Eyes: Pupils equal round and reactive bilaterally, extra occular motion intact bialterally ENT: Moist mucous membranes Neck: Supple, no lymphadenopathy, no JVD, no meningismus CVS: Heart regular rate and rhythm, no murmurs, rubs or gallops, radial pulses 2+ bilaterally Resp: Respirations nondistressed, mild bilateral wheezes noted Abdomen: Soft, nontender, nondistended, no palpable masses, normal bowel sounds Back: Nontender Extremities: Nontender, atraumatic, active full range of motion, no peripheral edema Skin: warm, no rashes, no petechia Neuro: Alert and oriented x 4, CN 2-12 intact, no lateralizing neurological defecits Psyc: Normal affect Test Results: PA and lateral chest x-ray negative per radiology Emergency Department Course and Treatment: Patient presented for evaluation secondary to cough. X-ray was negative. Patient is a smoker and has some mild wheezes. Patient will be treated for bronchitis with prednisone and albuterol. She was encouraged to stop smoking. Disposition: Discharge Impression: 1. Bronchitis 2. Tobacco abuse This note was generated with [employer] dictation software. It may contain incorrect words, spelling, and punctuation that were not noted in review of the chart prior to signing ED Disposition - Plan for ED Patient: Disposition: Home or Assisted Living Chief Complaint: Cough Diagnosis: Bronchitis Instructions: ED Bronchitis Asthmatic, ED Smoking Cessation Prescriptions: Albuterol Inhaler [Ventolin Hfa] 1 - 2 puff INHALATION Q4H PRN PRN #1 inhaler PRN Reason: Wheezing Prednisone [Deltasone] 60 mg PO DAILY #15 tab Referrals: Claudette Marin [Primary Care Provider] - 1 Week
== END 2018-03-27 17:57 | disposition home or self-care (01) ==
PROVIDERS: Emergency Provider Emergency Medicine; Family Provider Nurse Practitioner; PCP Nurse Practitioner
DX: J40 Bronchitis, not specified as acute or chronic (principal); Z72.0 Tobacco use; E66.9 Obesity, unspecified; I10 Essential (primary) hypertension
CPT/HCPCS: 71046; 99282

== ENCOUNTER → 2018-04-08 07:25 | Outpatient (CLI) | payer MEDICAID, SELFPAY ==
[2018-04-08 08:24] LABS: Hematocrit 47.2 % (37-47); Hemoglobin 15.5 g/dl (12.0-15.0); Mean Corp Hgb Conc 32.8 g/gl (32-36); Mean Corpuscular Hgb 31.7 pg (27.0-32.0); Mean Corpuscular Volume 96.5 fL (81-99); Mean Platelet Vol. 9.6 fl (6.2-12.0); Platelet Count 222 K/mm3 (150-450); RBC Distribution Width CV 13.2 % (11.6-14.6); RBC Distribution Width SD 46.6 fl (35.1-43.9); Red Blood Count 4.89 M/mm3 (4.2-5.4); Scan Indicated on CBC? Y/N NO
[2018-04-08 08:47] LABS: Valproic Acid (Depakene) Level 79 ug/mL (50-100)
[2018-04-08 08:49] LABS: ALB/GLOB Ratio 0.8 RATIO (0.9-2.4); AST(SGOT) 9 U/L (15-37); Alanine Aminotransfer ALT/SGPT 15 U/L (13-56); Albumin, Serum 3.2 g/dL (3.2-5.0); Alkaline Phosphatase 60 U/L (45-117); Anion Gap 9 (5-15); BUN 20 mg/dL (7-18); BUN/Creat Ratio 18.2 RATIO (10-20); Calcium,Total 8.5 mg/dL (8.5-10.1); Chloride 106 mmol/L (98-107); EST Glomerular Filtration Rate 57 mL/min (>60); Est Glom Filt Rate - Afr Amer 69 mL/min (>60); Globulin 4.1 g/dL (2.2-4.2); Glucose 125 mg/dL (74-106); Potassium 4.3 mmol/L (3.5-5.1); Protein, Total 7.3 g/dL (6.4-8.2); Sodium Level 141 mmol/L (136-145)
== END ==
PROVIDERS: Family Provider Nurse Practitioner; PCP Nurse Practitioner; Visit Provider Registered Nurse
DX: F31.81 Bipolar II disorder (principal); Z79.899 Other long term (current) drug therapy; F19.10 Other psychoactive substance abuse, uncomplicated; R53.83 Other fatigue
CPT/HCPCS: 36415; 80053; 80164; 85027